=== PATIENT | male | born 1950 | race Caucasian/White ===

== ENCOUNTER 2024-01-01 07:57 | Outpatient (CLI) | payer MEDICARE, BC ==
[2024-01-01] MEDS ORDERED: Iopamidol 370 76% 100 ML VIAL ONE (12:48)
== END 2024-01-01 07:58 | disposition home or self-care (01) ==
LOC: CT 07:57
PROVIDERS: ATTEND Otolaryngology Otolaryngic Allergy
DX: E21.3 Hyperparathyroidism, unspecified (principal); E04.2 Nontoxic multinodular goiter; E07.89 Other specified disorders of thyroid
CPT/HCPCS: 70492; 78072; 82565; A9500; Q9967